=== PATIENT | female | born 1980 | race Caucasian/White ===

== ENCOUNTER 2018-04-11 10:48 | Emergency (ER) | payer OTHER ==
[~2018-04-11] VITALS: Ht 152.4 cm; Wt 79.8 kg
== END 2018-04-11 14:17 | disposition home or self-care (01) ==
LOC: ER 10:48
DX: O20.0 Threatened abortion (principal)

== ENCOUNTER 2018-08-14 13:53 | Inpatient (IN) | payer OTHER ==
[~2018-08-14] VITALS: Ht 152.4 cm; Wt 81.6 kg
[2018-08-14] MEDS ORDERED: PROGESTERONE (14:19)
[2018-08-14] MEDS ORDERED: ZYRTEC10 MG PO (14:20)
[2018-08-14] MEDS ORDERED: ASA81 MG PO (14:21)
[2018-08-14] MEDS ORDERED: FOLIC ACID PO (14:23)
[2018-08-14] MEDS ORDERED: PRENATAL TABLE1 EAC1 PO (14:24)
[2018-08-15] MEDS ORDERED: FOLIC ACID0.4 MG PO (15:49)
[2018-08-15] MEDS ORDERED: PROGESTERONE100 MG PO (15:51)
[2018-08-17] MEDS ORDERED: KEFLEX500 MG PO (16:08)
== END 2018-08-17 17:33 | disposition home or self-care (01) | DRG 833 ==
LOC: OBS/DEL 13:53 → LDR 16:20 → OB/GYN 16:20
PROVIDERS: ADMIT Obstetrics & Gynecology
PROC: BY4FZZZ Ultrasonography of Third Trimester, Single Fetus (ICD-10-PCS; principal; 2018-08-14)
DX: O60.03 Preterm labor without delivery, third trimester (principal); O26.853 Spotting complicating pregnancy, third trimester; O99.89 Other specified diseases and conditions complicating pregnancy, childbirth and the puerperium; Z3A.28 28 weeks gestation of pregnancy
CPT/HCPCS: 240

== ENCOUNTER 2018-09-01 10:55 | Inpatient (IN) | payer OTHER ==
[~2018-09-01] VITALS: Ht 152.4 cm; Wt 81.6 kg
[~2018-09-01 10:55] MED LIST: ASA81 MG PO; FOLIC ACID PO; FOLIC ACID0.4 MG PO; KEFLEX500 MG PO; PRENATAL TABLE1 EAC1 PO; PROGESTERONE; PROGESTERONE100 MG PO; ZYRTEC10 MG PO
== END 2018-09-02 15:34 | disposition home or self-care (01) | DRG 833 ==
LOC: LDR 10:55
PROVIDERS: ADMIT Obstetrics & Gynecology
PROC: 4A0HXFZ Measurement of Products of Conception, Cardiac Rhythm, External Approach (ICD-10-PCS; principal; 2018-09-01)
DX: O60.03 Preterm labor without delivery, third trimester (principal); Z3A.31 31 weeks gestation of pregnancy

== ENCOUNTER 2018-10-06 11:03 | Inpatient (IN) | payer OTHER ==
[~2018-10-06] VITALS: Ht 152.4 cm; Wt 84.8 kg
[2018-10-16] MEDS ORDERED: Tylenol Extra Streng PO (13:10)
[2018-10-16] MEDS ORDERED: MAXFE CAPLET1 EACH PO (13:11)
== END 2018-10-16 13:48 | disposition home or self-care (01) | DRG 768 ==
LOC: OB/GYN 10-10 14:15 → LDR 10-13 10:14 → OB/GYN 10-15 13:43
PROVIDERS: ADMIT Obstetrics & Gynecology
PROC: 0KQM0ZZ Repair Perineum Muscle, Open Approach (ICD-10-PCS; 2018-10-13)
PROC: 0UQC0ZZ Repair Cervix, Open Approach (ICD-10-PCS; 2018-10-13)
PROC: 4A1HXCZ Monitoring of Products of Conception, Cardiac Rate, External Approach (ICD-10-PCS; 2018-10-13)
PROC: 10E0XZZ Delivery of Products of Conception, External Approach (ICD-10-PCS; principal; 2018-10-13 18:00)
PROC: 30233N1 Transfusion of Nonautologous Red Blood Cells into Peripheral Vein, Percutaneous Approach (ICD-10-PCS; 2018-10-14)
DX: O70.1 Second degree perineal laceration during delivery (principal); O71.3 Obstetric laceration of cervix; O72.1 Other immediate postpartum hemorrhage; D62 Acute posthemorrhagic anemia; O99.113 Other diseases of the blood and blood-forming organs and certain disorders involving the immune mechanism complicating pregnancy, third trimester; O99.013 Anemia complicating pregnancy, third trimester; D69.59 Other secondary thrombocytopenia; O26.893 Other specified pregnancy related conditions, third trimester; D72.823 Leukemoid reaction; Z37.0 Single live birth; Z3A.37 37 weeks gestation of pregnancy

== ENCOUNTER 2018-12-09 09:04 | Outpatient (CLI) | payer OTHER ==
[~2018-12-09 09:04] MED LIST changes: +MAXFE CAPLET1 EACH PO; +Tylenol Extra Streng PO
== END 2018-12-09 09:15 | disposition home or self-care (01) ==
LOC: MRI 09:04
DX: R10.9 Unspecified abdominal pain (principal); K83.8 Other specified diseases of biliary tract; R93.9 Diagnostic imaging inconclusive due to excess body fat of patient
CPT/HCPCS: 74181

== ENCOUNTER 2019-01-18 14:13 | Emergency (ER) | payer OTHER ==
[~2019-01-18] VITALS: Ht 152.4 cm; Wt 78.5 kg
== END 2019-01-18 19:05 | disposition home or self-care (01) ==
LOC: ER 14:13
DX: L02.411 Cutaneous abscess of right axilla (principal)

== ENCOUNTER 2019-01-23 11:09 | Emergency (ER) | payer OTHER ==
[~2019-01-23] VITALS: Ht 152.4 cm; Wt 78.5 kg
[2019-01-23] MEDS ORDERED: ZANTAC300 MG PO (11:50)
== END 2019-01-23 17:03 | disposition home or self-care (01) ==
LOC: ER 11:09
DX: K52.1 Toxic gastroenteritis and colitis (principal); T36.8X5A Adverse effect of other systemic antibiotics, initial encounter